=== PATIENT | male | born 1960 | race Caucasian/White ===

== ENCOUNTER 2018-11-26 05:52 | Day surgery (SDC) | payer BC ==
[2018-11-26] MEDS ORDERED: Lactated Ringers 1,000 ML IV SCH (06:30)
[2018-11-26] MEDS ORDERED: DIPRIVAN 200 MG/20 ML IV ONE ×2 (07:57→08:11)
[2018-11-26] MEDS ORDERED: Versed 2 MG/2 ML Injection ONE (07:57)
--- NOTE | 2018-11-26 08:58 | OP ---
SURGERY DATE/TIME: 11/26/2018 0802 PREOPERATIVE DIAGNOSES: 1) Screening colonoscopy. 2) History of colon polyps. POSTOPERATIVE DIAGNOSIS: Normal colon. PROCEDURE: Colonoscopy. SURGEON: Damaso Cote M.D. ANESTHESIA: MAC by Reggie Benson CRNA. ESTIMATED BLOOD LOSS: None. SPECIMENS: None. DESCRIPTION OF PROCEDURE: After informed written consent was obtained, the patient was taken to the endoscopy suite. He underwent monitored anesthesia and digital rectal exam showed normal sphincter tone and no internal lesions. The scope was inserted into the rectum and sequentially the entire colonic mucosa was traversed. The level of cecum was reached and verified with direct visualization of the ileocecal valve. Upon withdrawal careful mucosal inspection revealed no gross abnormalities. Prior to withdrawal retroflexion was performed and showed no internal lesions. The scope was removed and the patient was transferred to the recovery room in good condition.
[2018-11-26 09:07] VITALS: BP 131/74; PULSE 69; O2SAT 100
== END 2018-11-26 09:22 | disposition home or self-care (01) ==
LOC: SDC 05:52
PROVIDERS: ATTEND Family Medicine
DX: Z12.11 Encounter for screening for malignant neoplasm of colon (principal); Z86.010 Personal history of colon polyps; I10 Essential (primary) hypertension
CPT/HCPCS: J2250; J2704

== ENCOUNTER 2021-04-25 16:19 | Emergency (ER) | payer BC ==
--- NOTE | 2021-04-25 16:26 | ERPHSYRPT ---
- History of Present Illness Time Seen by Provider: 04/25/21 16:26 Source: patient Physician History: This is a 60-year-old white male who has been coughing for 3 months period of time. He has a history of gastroesophageal reflux disease, hypertension and elevated cholesterol. Patient went to [facility] for evaluation because of 3- month period of coughing. There, he underwent an EKG which showed some significant abnormalities. They noticed that his heart rate would periodically dropped into the 30s. Patient has had no history of myocardial infarction. He did however, 7 to 8 years ago, undergo a cardiac catheterization by Dr. Alvares but there were no abnormalities per his report. Patient denies any history of dizziness or syncopal episodes. Patient denies any new medications. Patient denies chest pain or shortness of breath. Timing/Duration: other (Coughing for 3 months.) Cough Quality/Degree: moderate Possible Cause: frequent episodes Modifying Factors: Improves With: coughing Associated Symptoms: cough, No fever, No chest pain/soreness, No shortness of breath Allergies/Adverse Reactions: No Known Drug Allergies Allergy (Verified 11/26/18 06:31) Home Medications: Lansoprazole [Prevacid] 30 mg PO DAILY 03/10/14 [History] Amlodipine Besylate 5 mg [Norvasc 5 mg] 10 mg PO DAILY 07/26/17 [History] Atorvastatin Calcium 20 mg PO DAILY 07/26/17 [History] Benazepril HCl 10 mg [Lotensin 10 MG] 20 mg PO DAILY 07/26/17 [History] Hx Influenza Vaccination/Date Given: No Hx Pneumococcal Vaccination/Date Given: No Travel Risk - International Travel Have you traveled outside of the country in past 3 weeks: No - Coronavirus Screening Symptoms: Cough: New Onset Close contact with a COVID-19 positive Pt in past 14-21 Days: No - Review of Systems Constitutional: No Symptoms Eyes: No Symptoms Ears, Nose, & Throat: No Symptoms Respiratory: Cough Cardiac: No Symptoms Abdominal/Gastrointestinal: No Symptoms Genitourinary Symptoms: No Symptoms Musculoskeletal: No Symptoms Skin: No Symptoms Neurological: No Symptoms Psychological: No Symptoms Endocrine: No Symptoms Hematologic/Lymphatic: No Symptoms Immunological/Allergic: No Symptoms All Other Systems: Reviewed and Negative - Past Medical History Pertinent Past Medical History: Yes Neurological History: No Pertinent History ENT History: No Pertinent History Cardiac History: High Cholesterol, Hypertension Respiratory History: No Pertinent History Endocrine Medical History: No Pertinent History Musculoskeletal History: No Pertinent History GI Medical History: GERD, Gallbladder Disease, Hemorrhoids, Polyps, Ulcer History: No Pertinent History Psycho-Social History: Anxiety Male Reproductive Disorders: No Pertinent History - Past Surgical History Past Surgical History: Yes Neuro Surgical History: No Pertinent History Cardiac: Cardiac Catheterization Respiratory: No Pertinent History Gastrointestinal: Cholecystectomy Genitourinary: No Pertinent History Musculoskeletal: Orthopedic Surgery Male Surgical History: No Pertinent History Other Surgical History: rt knee 4 surgeries - Social History Smoking Status: Never smoker Exposure to second hand smoke: No Drug Use: none - Nursing Vital Signs Nursing Vital Signs: Initial Vital Signs Temperature 98.1 F 04/25/21 16:25 Pulse Rate 74 04/25/21 16:25 Respiratory Rate 22 04/25/21 16:25 Blood Pressure 140/60 04/25/21 16:25 O2 Sat by Pulse Oximetry 98 04/25/21 16:25 Pain Scale Pain Intensity 0 - Physical Exam General Appearance: no apparent distress, alert, anxiety Eye Exam: PERRL/EOMI, eyes nml inspection Ears, Nose, Throat Exam: normal ENT inspection, moist mucous membranes Neck Exam: normal inspection, non-tender, supple, full range of motion Respiratory Exam: normal breath sounds, lungs clear, airway intact, No chest tenderness, No respiratory distress Cardiovascular Exam: irregular Gastrointestinal/Abdomen Exam: soft, normal bowel sounds, No tenderness Rectal Exam: not done Back Exam: normal inspection, normal range of motion, No CVA tenderness, No vertebral tenderness Extremity Exam: normal inspection, normal range of motion, pelvis stable Neurologic Exam: alert, oriented x 3, cooperative, 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 Second-degree AV block, Mobitz 2. No acute ischemic changes.) Ordered Tests: Active Orders 24 hr Category Date Time Status EKG-ER Only STAT Care 04/25/21 16:41 Active IV Insertion STAT Care 04/25/21 16:41 Active Pulse Oximetry (ED) STAT Care 04/25/21 16:41 Active CHEST 1 VIEW (PORTABLE) Stat Exams 04/25/21 17:12 Taken CBC W DIFF Stat Lab 04/25/21 17:09 Completed CMP Stat Lab 04/25/21 16:52 Completed MAGNESIUM Stat Lab 04/25/21 16:52 Completed NT PRO BNP Stat Lab 04/25/21 16:52 Completed T4 (Thyroxine) Stat Lab 04/25/21 16:52 Completed TROPONIN Q3H Lab 04/25/21 16:52 Received TROPONIN Q3H Lab 04/25/21 18:57 Completed TROPONIN Q3H Lab 04/25/21 22:45 Ordered TROPONIN Q3H Lab 04/26/21 01:45 Ordered TROPONIN Q3H Lab 04/26/21 04:45 Ordered TSH [TSH, 3RD Generation] Stat Lab 04/25/21 16:52 Completed Medication Summary Discontinued Medications Generic Name Dose Route Start Last Admin Trade Name Freq PRN Reason Stop Dose Admin Hydrocodone Bitart/Acetaminophen 10 ml 04/25/21 17:17 04/25/21 17:23 Hydrocodone/Acetaminophen 5 Ml Udcup PO 04/25/21 17:18 10 ml STAT STA Administration Hydrocodone Bitart/Acetaminophen Confirm 04/25/21 17:21 Hydrocodone/Acetaminophen 5 Ml Udcup Administered 04/25/21 17:22 Dose 10 ml .ROUTE .STK-MED ONE Methylprednisolone Sodium 0 mg 04/25/21 17:18 04/25/21 17:23 Succinate 125 mg/ Sterile IV 04/25/21 17:19 125 mg Water 2 ml STAT ONE Administration Methylprednisolone Sodium Succinate Confirm 04/25/21 17:21 Methylprednis Sod Succ 125 Mg/2 Ml Vial Administered 04/25/21 17:22 Dose 125 mg .ROUTE .STK-MED ONE Lab/Rad Data: Laboratory Result Diagrams 04/25/21 17:09 04/25/21 16:52 Laboratory Results 04/25/21 04/25/21 04/25/21 Range/Units 18:57 17:09 16:52 WBC 7.3 (4.0-10.5) K/mm3 RBC 4.58 (4.1-5.6) M/mm3 Hgb 14.3 (12.5-18.0) gm/dl Hct 44.3 (42-50) % MCV 96.7 (78-100) fl MCH 31.2 (26-32) pg MCHC 32.3 (32-36) g/dl RDW 12.9 (11.5-14.0) % Plt Count 206 (150-450) K/mm3 MPV 10.3 (7.5-11.0) fl Gran % 77.3 H (36.0-66.0) % Eos # (Auto) 0.04 (0-0.5) Absolute Lymphs (auto) 0.55 L (1.0-4.6) Absolute Monos (auto) 1.07 (0.0-1.3) Lymphocytes % 7.5 L (24.0-44.0) % Monocytes % 14.6 H (0.0-12.0) % Eosinophils % 0.5 (0.00-5.0) % Basophils % 0.1 (0.0-0.4) % Absolute Granulocytes 5.65 (1.4-6.9) Basophils # 0.01 (0-0.4) Sodium (137-145) mmol/L Potassium (3.5-5.1) mmol/L Chloride (98-107) mmol/L Carbon Dioxide (22-30) mmol/L Anion Gap (5-15) MEQ/L BUN (9-20) mg/dL Creatinine (0.66-1.25) mg/dL Estimated GFR ML/MIN Glucose (74-106) mg/dL Calcium (8.4-10.2) mg/dL Magnesium (1.6-2.3) mg/dL Total Bilirubin (0.2-1.3) mg/dL AST (17-59) U/L ALT (0-50) U/L Alkaline Phosphatase (38-126) U/L Troponin I < 0.012 (0.000-0.034) ng/mL NT-Pro-B Natriuret Pep (0-900) pg/mL Serum Total Protein (6.3-8.2) g/dL Albumin (3.5-5.0) g/dL Thyroxine (T4) 8.60 (5.53-10.96) ug/dL TSH 3rd Generation 1.720 (0.47-4.68) mIU/L 04/25/21 Range/Units 16:52 WBC (4.0-10.5) K/mm3 RBC (4.1-5.6) M/mm3 Hgb (12.5-18.0) gm/dl Hct (42-50) % MCV (78-100) fl MCH (26-32) pg MCHC (32-36) g/dl RDW (11.5-14.0) % Plt Count (150-450) K/mm3 MPV (7.5-11.0) fl Gran % (36.0-66.0) % Eos # (Auto) (0-0.5) Absolute Lymphs (auto) (1.0-4.6) Absolute Monos (auto) (0.0-1.3) Lymphocytes % (24.0-44.0) % Monocytes % (0.0-12.0) % Eosinophils % (0.00-5.0) % Basophils % (0.0-0.4) % Absolute Granulocytes (1.4-6.9) Basophils # (0-0.4) Sodium 140 (137-145) mmol/L Potassium 4.1 (3.5-5.1) mmol/L Chloride 102 (98-107) mmol/L Carbon Dioxide 31 H (22-30) mmol/L Anion Gap 10.0 (5-15) MEQ/L BUN 12 (9-20) mg/dL Creatinine 0.81 (0.66-1.25) mg/dL Estimated GFR > 60.0 ML/MIN Glucose 101 (74-106) mg/dL Calcium 9.8 (8.4-10.2) mg/dL Magnesium 1.9 (1.6-2.3) mg/dL Total Bilirubin 2.50 H (0.2-1.3) mg/dL AST 31 (17-59) U/L ALT 34 (0-50) U/L Alkaline Phosphatase 91 (38-126) U/L Troponin I (0.000-0.034) ng/mL NT-Pro-B Natriuret Pep 768 (0-900) pg/mL Serum Total Protein 6.8 (6.3-8.2) g/dL Albumin 4.5 (3.5-5.0) g/dL Thyroxine (T4) (5.53-10.96) ug/dL TSH 3rd Generation (0.47-4.68) mIU/L - Progress Progress: unchanged Air Movement: good Progress Note: 04/25/21 19:32 Chest x-ray shows no acute cardiopulmonary process. 04/25/21 19:33 Medical decision making: I spoke to the patient's tree planter, Dr. Alvares. He stated since the patient is asymptomatic he can be discharged to home with a Holter monitor in place and follow-up in his office on , 04/27/2021. He is to call the office at [phone] to make a follow-up appointment. Patient is to return to the emergency department if you become symptomatic. Patient is to call Dr. Cote's office tomorrow to make arranges for follow-up appointment to discuss the coughing issue. Blood Culture(s) Obtained: No Antibiotics given: No Counseled pt/family regarding: lab results, diagnosis, need for follow-up, rad results - Departure Departure Disposition: Home Clinical Impression: Chronic bronchitis, Bradycardia Condition: Stable Critical Care Time: No Referrals: CHITRA HOUGH NP [Nurse Practioner] - Follow up/PCP as directed Additional Instructions: Take your medications as prescribed. Follow-up with Dr. Alvares in his office on , 04/27/2021. Call his office tomorrow, 04/26/2021 at [phone] to make arrangements to be seen on morning. Wear the Holter monitor for 24 hours. Return to the emergency department if you having symptoms of chest pain, dizziness or syncopal episodes.
[2021-04-25] MEDS ORDERED: HYDROCODONE-ACETAMIN 2.5-108/5 ML SOLUTION PO STA (17:17)
[2021-04-25] MEDS ORDERED: solu-MEDROL 125 MG, Sterile H2O 10 ml 2 ML IV ONE ×2 (17:18)
[2021-04-25] MEDS ORDERED: HYDROCODONE-ACETAMIN 2.5-108/5 ML SOLUTION ONE (17:21)
[2021-04-25] MEDS ORDERED: solu-MEDROL ONE (17:21)
[2021-04-25 17:28] LABS: Absolute Neutrophil Ct (ANC) 5.65 (1.4-6.9); BASOPHIL % 0.1 % (0.0-0.4); Basophil (Absolute #) 0.01 (0-0.4); Eosinophil % 0.5 % (0.00-5.0); Eosinophil (Absolute #) 0.04 (0-0.5); Hematocrit 44.3 % (42-50); Hemoglobin 14.3 gm/dl (12.5-18.0); Lymphocyte (Absolute #) 0.55 (1.0-4.6); Lymphocytes % 7.5 % (24.0-44.0); Mean Cell Volume 96.7 fl (78-100); Mean Corpuscular Hemoglobin 31.2 pg (26-32); Mean Corpuscular Hgb Concent. 32.3 g/dl (32-36); Mean Platelet Volume 10.3 fl (7.5-11.0); Monocyte (Absolute #) 1.07 (0.0-1.3); Monocytes % 14.6 % (0.0-12.0); Neutrophil % 77.3 % (36.0-66.0); Platelet Count 206 K/mm3 (150-450); Red Blood Count 4.58 M/mm3 (4.1-5.6); Red Cell Distribution Width 12.9 % (11.5-14.0); White Blood Count 7.3 K/mm3 (4.0-10.5)
[2021-04-25 18:06] LABS: ALBUMIN 4.5 g/dL (3.5-5.0); ALKALINE PHOSPHATASE 91 U/L (38-126); BLOOD UREA NITROGEN 12 mg/dL (9-20); CHLORIDE 102 mmol/L (98-107); Calcium 9.8 mg/dL (8.4-10.2); Carbon Dioxide 31 mmol/L (22-30); Creatinine 1 0.81 mg/dL (0.66-1.25); EST GLOMERULAR FILTRATION RATE > 60.0 ML/MIN; Glucose 101 mg/dL (74-106); MAGNESIUM 1.9 mg/dL (1.6-2.3); NT PRO BNP 768 pg/mL (0-900); Potassium 4.1 mmol/L (3.5-5.1); SGOT/AST 31 U/L (17-59); SGPT/ALT 34 U/L (0-50); SODIUM 140 mmol/L (137-145); Total Protein 6.8 g/dL (6.3-8.2)
[2021-04-25 18:29] LABS: T4 (Thyroxine) 8.6 ug/dL (5.53-10.96); TSH, 3RD Generation 1.72 mIU/L (0.47-4.68)
[2021-04-25 20:27] LABS: Slide Review 1 YES
[2021-04-25 20:29] VITALS: BP 152/48; PULSE 52; O2SAT 98
--- NOTE | 2021-04-26 08:59 | XRAY ---
Indication: Cough. Arrhythmia. Comparison: October 13, 2016. Portable chest now demonstrates borderline cardiomegaly. Descending aorta remains tortuous. No focal infiltrate, consolidation, or large effusion. Bony thorax intact again with old right rib and right clavicle fractures. Impression: Borderline cardiomegaly and chronic bony findings. No acute cardiopulmonary abnormalities.
== END 2021-04-25 20:40 | disposition home or self-care (01) ==
LOC: ED 16:19
DX: J42 Unspecified chronic bronchitis (principal); R00.1 Bradycardia, unspecified; I10 Essential (primary) hypertension; E78.5 Hyperlipidemia, unspecified; K21.9 Gastro-esophageal reflux disease without esophagitis
CPT/HCPCS: 36000; 36415; 71045; 80053; 83735; 83880; 84436; 84443; 85025; 93005; 93225; 94760; 96374; 99284; J2930; A9270-GY